=== PATIENT | female | born 1955 | race African-American/Black ===

== ENCOUNTER 2018-06-09 02:04 | Emergency (ER) | payer MEDICARE, MEDICAID ==
[~2018-06-09] VITALS: Ht 170.2 cm; Wt 91.8 kg
[2018-06-09 02:09] VITALS: Ht 170.2 cm; Wt 91.8 kg
[2018-06-09] MEDS ORDERED: BAYER CHEWABLE81 MG PO (02:11)
[2018-06-09] MEDS ORDERED: COZAAR25 MG PO (02:11)
[2018-06-09] MEDS ORDERED: LIPITOR20 MG PO (02:11)
[2018-06-09] MEDS ORDERED: METOPROLOL TART25 MG PO (02:11)
[2018-06-09 02:55] LABS: BASOPHILS 0.3 % (0-2); EOSINOPHILS 2.6 % (0-7); HEMATOCRIT 37.2 % (36.0-48.0); HEMOGLOBIN 12.5 g/dL (12-16); IMMATURE GRANULOCYTES 0.2 % (0-5); LYMPHOCYTES 36.2 % (15-50); MCH 27.7 pg (26.0-34.0); MCHC 33.6 g/dL (31.0-37.0); MCV 82.3 fL (80.0-100.0); MONOCYTES 6.2 % (2-11); NEUTROPHILS 54.5 % (40-80); PLATELET COUNT 246 10x3/uL (130-400); RBC 4.52 10x6/uL (4.00-5.40); RDW 12.2 % (11.5-14.5); WBC 6.1 10x3/uL (4.8-10.8)
[2018-06-09 03:10] LABS: KETONE - SERUM NEGATIVE (NEGATIVE)
[2018-06-09 03:20] LABS: ALBUMIN 3.7 g/dL (3.4-5.0); ALKALINE PHOSPHATASE 135 U/L (46-116); ALT (SGPT) 22 U/L (10-68); BILIRUBIN - TOTAL 0.54 mg/dL (0.2-1.3); CALCIUM 9.1 mg/dL (8.5-10.1); CARBON DIOXIDE 25.7 mmol/L (21.0-32.0); CHLORIDE - SERUM 98 mmol/L (98-107); CREATININE - SERUM 1.1 mg/dL (0.6-1.3); MAGNESIUM - SERUM 2.1 mg/dL (1.8-2.4); POTASSIUM - SERUM 4.1 mmol/L (3.5-5.1); PROTEIN - SERUM 7.5 g/dL (6.4-8.2); SODIUM 133 mmol/L (136-145); UREA NITROGEN 18 mg/dL (7-18); eGFR NON AFRICAN AMERICAN 53 mL/min (90-120)
[2018-06-09 03:26] LABS: CALC OSMOLALITY 289 mosm/kg (275-300); GLUCOSE 501 mg/dL (74-106)
[2018-06-09] MEDS ORDERED: METFORMIN HCL500 M1 PO (04:30)
[2018-06-09 06:15] VITALS: BP 134/87
== END 2018-06-09 06:15 | disposition home or self-care (01) ==
LOC: D.ER 02:04
PROVIDERS: Emergency Medicine
DX: R73.9 Hyperglycemia, unspecified (principal); I10 Essential (primary) hypertension